=== PATIENT | female | born 1985 | race Caucasian/White ===

== ENCOUNTER 2022-01-27 14:39 | Outpatient (CLI) | payer OTHER ==
--- NOTE | 2022-01-30 09:03 | MRI Report ---
PROCEDURE: Hip LT W/O INDICATIONS: LEFT HIP PAIN TECHNIQUE: Noncontrast coronal T1 spin echo and STIR through the bony pelvis. Coronal and axial T2 fast spin ec ho with fat saturation, sagittal T1 spin echo, and oblique axial T2 fast spin echo with fat saturatio n through the hip. COMPARISON: None. FINDINGS: Image quality: Excellent. Bones and joints: Bone marrow of the pelvic ring and proximal femurs show normal signal throughout. No intraosseous lesions or fractures. No avascular necrosis of the femoral heads. Moderate degener ative changes are seen at the pubic symphysis and sacroiliac joints. Mild facet hypertrophy is seen i n the included lower lumbar spine. Tendons: Mild distal gluteus medius and minimus tendinosis. The iliopsoas tendon appears intact, wi thout adjacent bursal fluid collections. The origin of the hamstring tendon demonstrates mild tendin osis. The tendons for the direct and indirect heads of the rectus femoris muscle appear intact. Labrum and cartilage: Thin linear fluid intensity signal is seen at the posterosuperior labrum with r elatively smooth margins, possibly representing a nondisplaced labral tear or joint recess. Cartilage surface of the femoral head appears of normal thickness. There is normal morphology of the femoral h ead and acetabulum. Soft tissues: Visualized muscles demonstrate normal bulk and internal signal. The proximal sciatic neurovascular bundle appears normal adjacent to the hamstring tendons. Possible arcuate or septate ap pearance of the uterus. The ovaries are symmetric. Mildly prominent ovarian veins are seen bilaterall y. Trace free fluid in the pelvis is considered physiologic. IMPRESSION: 1.Thin fluid signal intensity at the posterosuperior labrum is favored to represent a small nondispla froylan labral tear. 2.Moderate degenerative changes at the pubic symphysis and sacroiliac joints. 3.Mild gluteus medius and minimus tendinosis. 4.Mild proximal hamstring tendinosis. Reviewed by: Devon Metz MD on 01/30/2022 9:02 AM PDT Approved by: Devon Metz MD on 01/30/2022 9:02 AM PDT Station ID: [id number]
== END 2022-01-27 14:40 | disposition home or self-care (01) ==
LOC: DI 14:39
DX: M47.898 Other spondylosis, sacral and sacrococcygeal region (principal); M67.854 Other specified disorders of tendon, left hip; R93.6 Abnormal findings on diagnostic imaging of limbs

== ENCOUNTER 2023-03-31 02:58 | Emergency (ER) | payer OTHER ==
[2023-03-31 03:22] LABS: BASOPHILS # (AUTO) 0.1 10^3/uL (0.0-0.1); BASOPHILS % (AUTO) 0.9 %; EOSINOPHILS # (AUTO) 0.1 10^3/uL (0.0-0.7); EOSINOPHILS % (AUTO) 1.4 %; HCT - HEMATOCRIT 40.9 % (37.0-47.0); HGB - HEMOGLOBIN 12.8 g/dL (12.0-16.0); LYMPHOCYTES # (AUTO) 2.6 10^3/uL (1.5-3.5); LYMPHOCYTES % (AUTO) 28.3 %; MEAN CORPUSCULAR HEMOGLOBIN 28.8 pg (27.0-31.0); MEAN CORPUSCULAR HGB CONC 31.3 g/dL (32.0-36.0); MEAN CORPUSCULAR VOLUME 91.9 fL (81.0-99.0); MONOCYTES # (AUTO) 0.6 10^3/uL (0.0-1.0); MONOCYTES % (AUTO) 6.4 %; NEUTROPHILS # (AUTO) 5.7 10^3/uL (1.5-6.6); NEUTROPHILS % (AUTO) 62.7 %; PLT - PLATELET COUNT 235 10^3/uL (130-450); RED BLOOD COUNT 4.45 10^6/uL (4.20-5.40)
[2023-03-31] MEDS ORDERED: HYDROmorphone 0.5 MG/0.5 ML SYRINGE IVP STA (03:34)
[2023-03-31] MEDS ORDERED: KETOROLAC 30 MG/ML VIAL IVP STA (03:34)
[2023-03-31] MEDS ORDERED: MAG HYDROX/AL HYDROX/SIMETH 30 ML UDC PO STA (03:34)
[2023-03-31] MEDS ORDERED: ONDANSETRON 4 MG/2 ML VIAL IVP STA (03:34)
[2023-03-31] MEDS ORDERED: LIDOCAINE VISCOUS 2% 15 ML ORAL SYRINGE MM STA (03:34)
[2023-03-31 03:37] LABS: ALBUMIN 4.2 g/dL (3.2-5.5); ALBUMIN/GLOBULIN RATIO 1.6 (1.0-2.2); BILIRUBIN,TOTAL 0.8 mg/dL (0.2-1.0); CALCIUM 9.5 mg/dL (8.5-10.3); CREATININE 0.9 mg/dL (0.6-1.3); POTASSIUM 3.5 mmol/L (3.5-4.5); TOTAL PROTEIN 6.8 g/dL (6.4-8.9)
--- NOTE | 2023-03-31 03:42 | ED Physician Documentation ---
PD HPI ABD PAIN - Stated complaint Stated Complaint: ABD PX - Chief complaint Chief Complaint: Abd Pain - History obtained from History obtained from: Patient - Additional information Additional information: The patient comes to the emergency department chief complaint of a band of pain extending from her epigastrium on both sides since about 1600 yesterday. Patient states that just came up all of a sudden, but that gradually intensified to its current state. She states it comes in waves and just seems to randomly fluctuate. She has never had pain like this before. She does note that both her mother and father had their gallbladders removed, but she has never had any symptoms to indicate anything wrong with her ears. She states she has not really felt nauseated but she did vomit a couple of times. No history of ulcers. The patient has had an appendectomy and C-sections. She denies any lower abdominal pain. No urinary symptoms. No other complaints at this time. No fevers or chills. PD PAST MEDICAL HISTORY - Present Medications Home Medications: Ambulatory Orders Medication Instructions Recorded Confirmed HYDROcod/ACETAM 5/325 [Elizabeth 5/325] 1 - 2 tablet PO Q6H PRN #14 tablet 03/31/23 Ondansetron Odt [Zofran] 4 mg TL Q6H PRN #10 tablet 03/31/23 - Allergies Allergies/Adverse Reactions: Allergies Allergy/AdvReac Type Severity Reaction Status Date / Time No Known Drug Allergies Allergy Verified 03/31/23 03:23 PD ED PE NORMAL - Vitals Vital signs reviewed: Yes - General General: Alert and oriented X 3, No acute distress, Well developed/nourished - HEENT HEENT: Atraumatic, PERRL, EOMI, Moist mucous membranes - Neck Neck: Supple, no meningeal sign - Cardiac Cardiac: RRR, No murmur, Strong equal pulses - Respiratory Respiratory: No respiratory distress, Clear bilaterally - Abdomen Abdomen: Soft, Non distended, Other (Moderate tenderness over epigastrium with mild tenderness right and left upper quadrants. No rebound or guarding.) - Derm Derm: Normal color, Warm and dry, No rash - Extremities Extremities: No deformity - Neuro Neuro: Alert and oriented X 3 - Psych Psych: Normal mood, Normal affect Results - Vitals Vitals: Oxygen O2 Source Room air - Labs Labs: Laboratory Tests 03/31/23 03/31/23 03/31/23 03:15 03:15 03:38 WBC 9.0 RBC 4.45 Hgb 12.8 Hct 40.9 MCV 91.9 MCH 28.8 MCHC 31.3 L RDW 13.0 Plt Count 235 MPV 10.0 Neut # (Auto) 5.7 Lymph # (Auto) 2.6 [place] # (Auto) 0.6 Eos # (Auto) 0.1 Baso # (Auto) 0.1 Absolute Nucleated RBC 0.00 Nucleated RBC % 0.0 Sodium 135 Potassium 3.5 Chloride 106 Carbon Dioxide 23 Anion Gap 6.0 BUN 11 Creatinine 0.9 Estimated GFR (MDRD) 70 L Glucose 103 Calcium 9.5 Total Bilirubin 0.8 AST 15 ALT 13 Alkaline Phosphatase 51 Total Protein 6.8 Albumin 4.2 Globulin 2.6 Albumin/Globulin Ratio 1.6 Lipase 16 Urine Color YELLOW Urine Clarity CLEAR Urine pH 5.0 Ur Specific [place] >=1.030 H Urine Protein NEGATIVE Urine Glucose (UA) NEGATIVE Urine Ketones NEGATIVE Urine Occult Blood SMALL H Urine Nitrite NEGATIVE Urine Bilirubin NEGATIVE Urine Urobilinogen 0.2 (NORMAL) Ur Leukocyte Esterase NEGATIVE Urine RBC 0-5 Urine WBC 0-3 Ur Squamous Epith Cells FEW Squamous Urine Bacteria Rare Ur Microscopic Review INDICATED Urine Culture Comments NOT INDICATED Urine HCG, Qual NEGATIVE - Rads (name of study) CT abd/pelvis Relevant Findings:: Prelim report reviewed, See rad report PD Medical Decision Making - ED course Complexity details: reviewed results, re-evaluated patient, considered differential, d/w patient ED course: The patient was treated symptomatically in the emergency department and worked up with laboratory studies initially including ER abdominal panel and CBC, which were unremarkable. US was not available for a number of hours, so I obtained a CT. This showed gallstones without evidence of wall thickening or pericholecystic fluid. The pt required a repeat dose of analgesic, and was feeling quite a bit better on re-evaluation. Her labs were unremarkable, but nonetheless, I did offer to keep her in the ED for US, which would be available in about 4 hours. We have discussed the option of discharge on symptomatic management, given her labs are normal and the imaging does not show any evidence of acute cholecystitis. The pt prefers to go home. We have discussed the need for return if sx worsen. I have given her follow-up information for surgery clinic. Departure - Departure Disposition: Home, Self Care Clinical Impression: Biliary colic Cholelithiasis Qualifiers: Cholelithiasis location: gallbladder Cholecystitis presence: without cholecystitis Biliary obstruction: without biliary obstruction Qualified Code(s): K80.20 - Calculus of gallbladder without cholecystitis without obstruction Condition: Stable Instructions: ED Gallstone W Biliary Colic Follow-Up: Benjamin Seth MD [Provider Admit Priv/Credential] - Prescriptions: HYDROcod/ACETAM 5/325 [Elizabeth 5/325] 1 - 2 tablet PO Q6H PRN #14 tablet PRN Reason: Pain Ondansetron Odt [Zofran] 4 mg TL Q6H PRN #10 tablet PRN Reason: Nausea / Vomiting Comments: Your laboratory studies are completely normal. Your CT scan shows a gallbladder with gallstones but no evidence of inflammation of the gallbladder itself. At this point in time, there is no indication for an emergent removal of your gallbladder. You may have passage of gallstones or pain after eating from time to time, and as such, you may wish to follow-up with surgery and talk about having her gallbladder removed on an elective basis. If you develop pain that is increasingly severe, or if you develop jaundice or fever, you should come back to the emergency department immediately. A prescription for your pain medication and nausea medication has been electronically transmitted to the [facility] pharmacy in [place]. Forms: PCP List Discharge Date/Time: 03/31/23 06:23
[2023-03-31 03:48] LABS: BILIRUBIN,URINE NEGATIVE (NEGATIVE); GLUCOSE, URINE (UA) NEGATIVE (NEGATIVE); KETONES,URINE (UA) NEGATIVE (NEGATIVE); LEUKOCYTE ESTERASE, URINE NEGATIVE (NEGATIVE); NITRITE,URINE NEGATIVE (NEGATIVE); OCCULT BLOOD,URINE SMALL (NEGATIVE); PROTEIN,URINE NEGATIVE (NEGATIVE); UROBILINOGEN,URINE 0.2 (NORMAL) E.U./dL (NORMAL)
[2023-03-31 03:50] LABS: CLARITY,URINE CLEAR (CLEAR); HCG UR QUAL NEGATIVE
[2023-03-31 03:56] LABS: RBC,URINE 0-5 /HPF (0-5); SQUAMOUS EPITHELIAL CELL,UR FEW Squamous (<= Few); WBC,URINE 0-3 /HPF (0-5)
[2023-03-31 03:57] LABS: BACTERIA,URINE Rare /HPF (None Seen)
[2023-03-31] MEDS ORDERED: iohexoL-300 100 ML VIAL IVP ONE (05:29)
[2023-03-31 06:09] VITALS: BP 118/59; O2SAT 99
--- NOTE | 2023-03-31 08:52 | CT Report ---
PROCEDURE: ABDOMEN/PELVIS W INDICATIONS: pain upper abd and bilateral flanks, vomiting CONTRAST: Omni 300 100ml TECHNIQUE: After the administration of IV contrast, 5 mm thick sections acquired from the diaphragms to the symp hysis. 5 mm thick coronal and sagittal reformats were acquired. For radiation dose reduction, the f ollowing was used: automated exposure control, adjustment of mA and/or kV according to patient size. COMPARISON: None. FINDINGS: Image quality: Excellent. Lung bases and heart: Unremarkable. Liver: No solid mass. Gallbladder and biliary tree: There are multiple gallstones. No biliary dilation. Spleen: No splenomegaly. Pancreas: No pancreatic ductal dilation. Adrenals: No adrenal nodule. Kidneys and ureters: No hydronephrosis. No renal cystic lesion which requires follow up. No solid mas s. Bowel and peritoneum: No bowel distension. No pathologic free fluid. Appendix is surgically removed. A few colonic diverticula. Lymph nodes: No central or retroperitoneal adenopathy. Vessels: No infrarenal aortic aneurysm. PELVIS Reproductive organs: Myomatous uterus. Bladder: No abnormal wall thickening, accounting for underdistension. Pelvic lymph nodes: No pelvic adenopathy by size criteria. Bones: No aggressive osseous abnormality. Other: No significant ventral or inguinal hernia. IMPRESSION: 1. Cholelithiasis. No CT findings to suggest acute cholecystitis. If clinically indicated, ultrasound or HIDA scan may be helpful. 2. Mild diverticulosis. No acute diverticulitis. 3. Myomatous uterus. Findings are concordant with preliminary interpretation provided by [facility]. Reviewed by: Yi Farias MD on 03/31/2023 8:51 AM PDT Approved by: Yi Farias MD on 03/31/2023 8:51 AM PDT Station ID: [id number]
== END 2023-03-31 06:23 | disposition home or self-care (01) ==
LOC: ED 02:58
DX: K80.20 Calculus of gallbladder without cholecystitis without obstruction (principal); K80.50 Calculus of bile duct without cholangitis or cholecystitis without obstruction
CPT/HCPCS: 36415; 74177; 80053; 81001; 81025; 83690; 85025; 96374; 96375; 99283; 99284; A9270; J1170; Q9967; 81003; 87086